=== PATIENT | female | born 1975 | race African-American/Black ===

== ENCOUNTER 2018-02-13 03:28 | Inpatient (IN) | payer MEDICAID ==
[~2018-02-13] VITALS: Ht 157.5 cm; Wt 61.2 kg
[~2018-02-13 03:28] MED LIST: ASPI-1159 PO; FURO-152 PO; LISI2.5T47 PO; SPIR25TA PO
[2018-02-13] MEDS ORDERED: FUROSEMIDE 40MG/4ML VIAL IV ONE (04:00)
[2018-02-13 04:12] LABS: BASOPHILS % 1.4 % (0.0-2.0); EOSINOPHILS % 1.4 % (0.0-5.0); HEMATOCRIT. 31.3 % (36.0-48.0); HEMOGLOBIN. 10.2 g/dL (12.0-16.0); LYMPHOCYTES % 36.5 % (20.0-50.0); MEAN CORPUSCULAR HEMOGLOBIN 32.3 pg (28.0-32.0); MEAN CORPUSCULAR VOLUME 98.9 fL (81.0-99.0); MEAN PLATELET VOLUME 7.9 fl (7.4-10.4); MONOCYTES % 8.5 % (2.0-8.0); NEUTROPHILS % 52.2 % (40.0-76.0); PLATELET 169 x1000/uL (130-400); RED BLOOD CELL COUNT 3.17 mill/uL (4.2-5.4); RED CELL DISTRIBUTION WIDTH 26.5 % (11.6-14.6)
[2018-02-13 04:16] LABS: CHLORIDE 98 mEq/L (98-107)
[2018-02-13 04:22] LABS: HCG SCREEN NEGATIVE
[2018-02-13 10:10] VITALS: BP 92/68
[2018-02-13] MEDS ORDERED: FERR325T6 MT (10:26)
[2018-02-13] MEDS ORDERED: CARV3.1242 MT (10:26)
[2018-02-13] MEDS: ASPIRIN 81MG TABLET PO SCH (12:02)
[2018-02-13] MEDS: LOSARTAN POTASSIUM 25 MG TABLET PO SCH (13:30)
[2018-02-13] MEDS: SPIRONOLACTONE 25MG TABLET PO SCH ×2 (13:30→20:36)
[2018-02-13 13:52] LABS: PHOSPHORUS 4.4 mg/dL (2.5-4.9)
[2018-02-13 13:54] LABS: FERRITIN 59 ng/mL (10-291)
[2018-02-13 14:02] LABS: TOTAL IRON BINDING CAPACITY 430 ug/dL (250-450)
[2018-02-13 14:05] LABS: HEPATITIS B SURFACE ANTIGEN NEGATIVE
[2018-02-13 14:08] LABS: VITAMIN B12 SERUM 955 pg/mL (211-911)
[2018-02-13 14:35] LABS: HEPATITIS A AB IGM NEGATIVE (NEGATIVE)
[2018-02-13] MEDS: POTASSIUM CHLORIDE 20MEQ TABLET SR PO SCH ×2 (14:53→17:00)
[2018-02-13] MEDS: FUROSEMIDE 100MG/10ML VIAL IVP SCH ×2 (14:53→17:15)
[2018-02-13] MEDS ORDERED: ENOXAPARIN 30MG/0.3ML SYR SUBCUT SCH (17:00)
[2018-02-13 18:24] LABS: CLARITY URINE CLOUDY (CLEAR); COLOR URINE DARK YELLOW (YELLOW); KETONES URINE NEGATIVE (NEGATIVE); LEUKOCYTE ESTERASE URINE 3+ (NEGATIVE); NITRITE URINE NEGATIVE (NEGATIVE); OCCULT BLOOD URINE 3+ (NEGATIVE); PROTEIN URINE TRACE (NEGATIVE); SPECIFIC GRAVITY URINE 1.016 (1.005-1.030)
[2018-02-13 18:33] LABS: *AMPHETAMINES SCREEN URINE NEGATIVE (NEGATIVE); *BARBITURATES SCREEN URINE NEGATIVE (NEGATIVE); *BENZODIAZEPINES SCREEN URINE NEGATIVE (NEGATIVE); *COCAINE SCREEN URINE NEGATIVE (NEGATIVE); METHADONE URINE SCREEN NEGATIVE (NEGATIVE); OPIATES URINE SCREEN NEGATIVE (NEGATIVE); PHENCYCLIDINE URINE SCREEN NEGATIVE (NEGATIVE)
[2018-02-13 18:50] LABS: CANNABINOID URINE SCREEN PRESUMTIVE POSITIVE (NEGATIVE)
[2018-02-13 20:00] VITALS: BP 96/69
[2018-02-14] VITALS: BP 94/67
[2018-02-14] MEDS: FUROSEMIDE 100MG/10ML VIAL IVP SCH (06:30)
[2018-02-14 07:15] LABS: BASOPHILS % 0.5 % (0.0-2.0); EOSINOPHILS % 1.8 % (0.0-5.0); HEMATOCRIT. 28.3 % (36.0-48.0); HEMOGLOBIN. 9.4 g/dL (12.0-16.0); LYMPHOCYTES % 43.4 % (20.0-50.0); MEAN CORPUSCULAR HEMOGLOBIN 31.4 pg (28.0-32.0); MEAN CORPUSCULAR VOLUME 94.9 fL (81.0-99.0); MEAN PLATELET VOLUME 7.5 fl (7.4-10.4); MONOCYTES % 8.6 % (2.0-8.0); NEUTROPHILS % 45.7 % (40.0-76.0); PLATELET 139 x1000/uL (130-400); RED BLOOD CELL COUNT 2.99 mill/uL (4.2-5.4); RED CELL DISTRIBUTION WIDTH 26.8 % (11.6-14.6)
[2018-02-14 07:53] LABS: CHLORIDE 98 mEq/L (98-107)
[2018-02-14 08:00] VITALS: BP 97/72
[2018-02-14 08:05] LABS: LDL CHOLESTEROL 48 mg/dL (5-100)
[2018-02-14 08:06] LABS: CREATINE KINASE 41 IU/L (26-192); CREATINE KINASE MB FRACTION 1.4 ng/mL (0.5-3.6); HDL CHOLESTEROL 33 mg/dL (40-59)
[2018-02-14] MEDS: POTASSIUM CHLORIDE 20MEQ TABLET SR PO SCH (08:23)
[2018-02-14] MEDS: SPIRONOLACTONE 25MG TABLET PO SCH (08:23)
[2018-02-14] MEDS: ASPIRIN 81MG TABLET PO SCH (08:23)
[2018-02-14] MEDS: LOSARTAN POTASSIUM 25 MG TABLET PO SCH (08:24)
[2018-02-14 11:11] VITALS: BP 97/72
[2018-02-14 12:00] VITALS: BP 97/65
[2018-02-14] MEDS ORDERED: CARV3.1242 MT (14:01)
[2018-02-14] MEDS ORDERED: FURO10VI3 IVP (14:01)
[2018-02-14] MEDS ORDERED: LOSA25TA3 PO (14:01)
[2018-02-14] MEDS ORDERED: POTASSIUM CHLORIDE 20MEQ TABLET SR PO NR (15:15)
[2018-02-14] MEDS ORDERED: FUROSEMIDE 100MG/10ML VIAL IVP SCH (17:00)
== END 2018-02-14 15:50 | disposition left against medical advice (07) | DRG 194 ==
LOC: ER 03:28 → 5WST 05:01 → EDBEDREQ 05:06 → EDBEDREQTM 05:06 → CANRESERV 07:16 → ENRESERV 07:16 → 5WST 08:51
PROVIDERS: ADMIT Internal Medicine; ATTEND Internal Medicine
DX: I11.0 Hypertensive heart disease with heart failure (principal); I27.20 Pulmonary hypertension, unspecified; I95.9 Hypotension, unspecified; I42.0 Dilated cardiomyopathy; R18.8 Other ascites; J45.909 Unspecified asthma, uncomplicated; Z53.21 Procedure and treatment not carried out due to patient leaving prior to being seen by health care provider; I50.43 Acute on chronic combined systolic (congestive) and diastolic (congestive) heart failure; D64.9 Anemia, unspecified; F12.90 Cannabis use, unspecified, uncomplicated; F17.210 Nicotine dependence, cigarettes, uncomplicated; I34.0 Nonrheumatic mitral (valve) insufficiency; Z79.82 Long term (current) use of aspirin; Z79.899 Other long term (current) drug therapy
CPT/HCPCS: 36415; 71045; 76705; 80061; 80305; 82550; 82553; 82607; 82728; 82746; 83540; 83550; 83735; 83880; 84100; 84443; 84484; 84703; 86705; 86709; 86803; 87340; 93005; 93970; 96374; 97162; 99285; J1650; J1940

== ENCOUNTER 2018-03-09 20:05 | Inpatient (IN) | payer MEDICAID ==
[~2018-03-09] VITALS: Ht 156.5 cm; Wt 75.7 kg
[~2018-03-09 20:05] MED LIST changes: +CARV3.1242 MT; +FERR325T6 MT; +FURO10VI3 IVP; +LOSA25TA3 PO
[2018-03-09] MEDS ORDERED: FUROSEMIDE 100MG/10ML VIAL IVP ONE (23:15)
[2018-03-09 23:46] LABS: BASOPHILS % 1.5 % (0.0-2.0); EOSINOPHILS % 1.7 % (0.0-5.0); HEMATOCRIT. 34.1 % (36.0-48.0); HEMOGLOBIN. 11.2 g/dL (12.0-16.0); LYMPHOCYTES % 36.2 % (20.0-50.0); MEAN CORPUSCULAR HEMOGLOBIN 32.1 pg (28.0-32.0); MEAN CORPUSCULAR VOLUME 97.4 fL (81.0-99.0); MEAN PLATELET VOLUME 7.6 fl (7.4-10.4); MONOCYTES % 7.2 % (2.0-8.0); NEUTROPHILS % 53.4 % (40.0-76.0); PLATELET 194 x1000/uL (130-400)
[2018-03-10] VITALS (8 sets, daily range): BP systolic 88–128; BP diastolic 61–75
[2018-03-10 00:02] LABS: CHLORIDE 101 mEq/L (98-107)
[2018-03-10 00:27] LABS: PLATELET ESTIMATE NORMAL
[2018-03-10] MEDS ORDERED: ONDANSETRON HCL 4MG/2ML INJ IV PRN (08:30)
[2018-03-10] MEDS ORDERED: ACETAMINOPHEN 325MG TABLET PO PRN (08:30)
[2018-03-10] MEDS ORDERED: CARVEDILOL 3.125 MG TABLET PO SCH (09:00)
[2018-03-10] MEDS: FUROSEMIDE 100MG/10ML VIAL IVP SCH ×2 (09:10→16:34)
[2018-03-10] MEDS: POTASSIUM CHLORIDE 20MEQ TABLET SR PO SCH (09:11)
[2018-03-10] MEDS: ENOXAPARIN 40MG/0.4ML SYR SUBCUT SCH (09:12)
[2018-03-10] MEDS: HYDROCODONE/ACETAMINOPHEN 5/325MG TABLET PO PRN ×2 (14:32→22:59)
[2018-03-10] MEDS: CARVEDILOL 6.25 MG TABLET PO SCH (20:38)
[2018-03-11] VITALS (12 sets, daily range): BP systolic 92–155; BP diastolic 45–85
[2018-03-11 00:02] LABS: CLARITY URINE CLEAR (CLEAR); COLOR URINE DARK YELLOW (YELLOW); KETONES URINE NEGATIVE (NEGATIVE); LEUKOCYTE ESTERASE URINE 2+ (NEGATIVE); NITRITE URINE NEGATIVE (NEGATIVE); OCCULT BLOOD URINE TRACE (NEGATIVE); PH URINE 5.5 (4.5-8.0); PROTEIN URINE NEGATIVE (NEGATIVE); SPECIFIC GRAVITY URINE 1.012 (1.005-1.030)
[2018-03-11 00:19] LABS: *AMPHETAMINES SCREEN URINE NEGATIVE (NEGATIVE); *BARBITURATES SCREEN URINE NEGATIVE (NEGATIVE); *BENZODIAZEPINES SCREEN URINE NEGATIVE (NEGATIVE); *COCAINE SCREEN URINE NEGATIVE (NEGATIVE)
[2018-03-11 00:20] LABS: METHADONE URINE SCREEN NEGATIVE (NEGATIVE); PHENCYCLIDINE URINE SCREEN NEGATIVE (NEGATIVE)
[2018-03-11 00:24] LABS: CANNABINOID URINE SCREEN PRESUMTIVE POSITIVE (NEGATIVE); OPIATES URINE SCREEN PRESUMTIVE POSITIVE (NEGATIVE)
[2018-03-11 06:29] LABS: BASOPHILS % 1.6 % (0.0-2.0); EOSINOPHILS % 2.3 % (0.0-5.0); HEMATOCRIT. 29.6 % (36.0-48.0); HEMOGLOBIN. 9.9 g/dL (12.0-16.0); LYMPHOCYTES % 46.6 % (20.0-50.0); MEAN CORPUSCULAR HEMOGLOBIN 31.9 pg (28.0-32.0); MEAN PLATELET VOLUME 7.4 fl (7.4-10.4); MONOCYTES % 7.9 % (2.0-8.0); NEUTROPHILS % 41.6 % (40.0-76.0); PLATELET 171 x1000/uL (130-400); RED BLOOD CELL COUNT 3.11 mill/uL (4.2-5.4); RED CELL DISTRIBUTION WIDTH 24.3 % (11.6-14.6)
[2018-03-11 06:33] LABS: CHLORIDE 102 mEq/L (98-107)
[2018-03-11] MEDS ORDERED: POTASSIUM CHLORIDE 20MEQ TABLET SR PO SCH (08:30)
[2018-03-11] MEDS: CARVEDILOL 6.25 MG TABLET PO SCH ×2 (09:00→20:57)
[2018-03-11] MEDS: POTASSIUM CHLORIDE 20MEQ TABLET SR PO SCH (09:53)
[2018-03-11] MEDS: ENOXAPARIN 40MG/0.4ML SYR SUBCUT SCH (09:54)
[2018-03-11] MEDS: FUROSEMIDE 100MG/10ML VIAL IVP SCH ×2 (09:54→17:23)
[2018-03-11] MEDS ORDERED: CEFTRIAXONE 1,000 MG in DEXTROSE 5% WATER 50 ML IV SCH (11:45)
[2018-03-11] MEDS: CEFTRIAXONE 1 G PREMIX 50 ML IV SCH (13:50)
[2018-03-11] MEDS: HYDROCODONE/ACETAMINOPHEN 5/325MG TABLET PO PRN (20:52)
[2018-03-12] VITALS (10 sets, daily range): BP systolic 86–133; BP diastolic 49–78
[2018-03-12 07:15] LABS: BASOPHILS % 1.4 % (0.0-2.0); EOSINOPHILS % 1.7 % (0.0-5.0); HEMATOCRIT. 30.7 % (36.0-48.0); LYMPHOCYTES % 41.9 % (20.0-50.0); MEAN CORPUSCULAR HEMOGLOBIN 31.4 pg (28.0-32.0); MEAN PLATELET VOLUME 7.7 fl (7.4-10.4); PLATELET 175 x1000/uL (130-400); RED BLOOD CELL COUNT 3.19 mill/uL (4.2-5.4); RED CELL DISTRIBUTION WIDTH 23.9 % (11.6-14.6)
[2018-03-12 08:14] LABS: CHLORIDE 100 mEq/L (98-107)
[2018-03-12] MEDS: ENOXAPARIN 40MG/0.4ML SYR SUBCUT SCH (09:28)
[2018-03-12] MEDS: POTASSIUM CHLORIDE 20MEQ TABLET SR PO SCH (09:29)
[2018-03-12] MEDS: CARVEDILOL 6.25 MG TABLET PO SCH ×2 (09:30→22:57)
[2018-03-12] MEDS: FUROSEMIDE 100MG/10ML VIAL IVP SCH (09:31)
[2018-03-12] MEDS: HYDROCODONE/ACETAMINOPHEN 5/325MG TABLET PO PRN (10:03)
[2018-03-12] MEDS ORDERED: ZOLPIDEM TARTRATE 5MG TABLET PO PRN (10:30)
[2018-03-12] MEDS ORDERED: FUROSEMIDE 40MG/4ML VIAL IVP NR (11:11)
[2018-03-12] MEDS: LOSARTAN POTASSIUM 25 MG TABLET PO SCH (12:30)
[2018-03-12] MEDS: SPIRONOLACTONE 25MG TABLET PO SCH (12:34)
[2018-03-12] MEDS: CEFTRIAXONE 1 G PREMIX 50 ML IV SCH (14:16)
[2018-03-12] MEDS ORDERED: FUROSEMIDE 40MG/4ML VIAL IVP SCH (17:15)
[2018-03-13] VITALS (10 sets, daily range): BP systolic 85–97; BP diastolic 23–66
[2018-03-13] MEDS: HYDROCODONE/ACETAMINOPHEN 5/325MG TABLET PO PRN ×3 (00:03→23:38)
[2018-03-13 08:00] LABS: BASOPHILS % 0.4 % (0.0-2.0); EOSINOPHILS % 2.2 % (0.0-5.0); HEMATOCRIT. 30.4 % (36.0-48.0); MEAN CORPUSCULAR HEMOGLOBIN 32.1 pg (28.0-32.0); MEAN CORPUSCULAR VOLUME 97.5 fL (81.0-99.0); MEAN PLATELET VOLUME 7.8 fl (7.4-10.4); MONOCYTES % 9.5 % (2.0-8.0); NEUTROPHILS % 47.9 % (40.0-76.0); PLATELET 184 x1000/uL (130-400); RED BLOOD CELL COUNT 3.12 mill/uL (4.2-5.4); RED CELL DISTRIBUTION WIDTH 23.4 % (11.6-14.6)
[2018-03-13 08:13] LABS: CHLORIDE 99 mEq/L (98-107)
[2018-03-13] MEDS: ENOXAPARIN 40MG/0.4ML SYR SUBCUT SCH (09:46)
[2018-03-13] MEDS: LOSARTAN POTASSIUM 25 MG TABLET PO SCH (09:48)
[2018-03-13] MEDS: CARVEDILOL 6.25 MG TABLET PO SCH ×2 (09:48→20:52)
[2018-03-13] MEDS: POTASSIUM CHLORIDE 20MEQ TABLET SR PO SCH (09:48)
[2018-03-13] MEDS: SPIRONOLACTONE 25MG TABLET PO SCH (09:49)
[2018-03-13] MEDS: METOLAZONE 10MG TABLET PO SCH (12:41)
[2018-03-13] MEDS: CEFTRIAXONE 1 G PREMIX 50 ML IV SCH (15:11)
[2018-03-13 15:27] LABS: INR 1.5; PROTHROMBIN TIME 14.8 sec (9.1-11.1)
[2018-03-14] VITALS (7 sets, daily range): BP systolic 47–101; BP diastolic 22–67
[2018-03-14] MEDS: HYDROCODONE/ACETAMINOPHEN 5/325MG TABLET PO PRN (04:24)
[2018-03-14 06:03] LABS: BASOPHILS % 1.3 % (0.0-2.0); EOSINOPHILS % 2.8 % (0.0-5.0); HEMOGLOBIN. 10.2 g/dL (12.0-16.0); LYMPHOCYTES % 40.7 % (20.0-50.0); MEAN CORPUSCULAR HEMOGLOBIN 31.8 pg (28.0-32.0); MEAN CORPUSCULAR VOLUME 96.4 fL (81.0-99.0); MEAN PLATELET VOLUME 7.8 fl (7.4-10.4); MONOCYTES % 9.2 % (2.0-8.0); PLATELET 204 x1000/uL (130-400); RED BLOOD CELL COUNT 3.21 mill/uL (4.2-5.4); RED CELL DISTRIBUTION WIDTH 23.3 % (11.6-14.6)
[2018-03-14 06:25] LABS: CHLORIDE 99 mEq/L (98-107)
[2018-03-14] MEDS: CARVEDILOL 6.25 MG TABLET PO SCH (07:58)
[2018-03-14] MEDS: LOSARTAN POTASSIUM 25 MG TABLET PO SCH (07:59)
[2018-03-14] MEDS: METOLAZONE 10MG TABLET PO SCH (07:59)
[2018-03-14] MEDS: SPIRONOLACTONE 25MG TABLET PO SCH (07:59)
[2018-03-14] MEDS: POTASSIUM CHLORIDE 20MEQ TABLET SR PO SCH (08:00)
[2018-03-14] MEDS ORDERED: LIDOCAINE HCL 1% 20ML VIAL (Pyxis) INJ ONE (11:29)
[2018-03-14] MEDS ORDERED: SODIUM BICARBONATE 4% (2.4MEQ) 5ML VIAL IV ONE (11:30)
[2018-03-14] MEDS: CEFTRIAXONE 1 G PREMIX 50 ML IV SCH (12:56)
[2018-03-14] MEDS ORDERED: FUROSEMIDE 100MG/10ML VIAL IVP SCH (13:15)
== END 2018-03-14 16:10 | disposition home or self-care (01) | DRG 194 ==
LOC: ER 20:05 → 5EST 03-10 00:41 → EDBEDREQDT 03-10 00:44 → EDBEDREQ 03-10 00:44 → EDBEDREQTM 03-10 00:44 → ENRESERV 03-10 03:27
PROVIDERS: ADMIT Internal Medicine; ATTEND Internal Medicine
PROC: 0W9G3ZZ Drainage of Peritoneal Cavity, Percutaneous Approach (ICD-10-PCS; principal; 2018-03-14)
DX: I11.0 Hypertensive heart disease with heart failure (principal); I27.20 Pulmonary hypertension, unspecified; I95.9 Hypotension, unspecified; I42.0 Dilated cardiomyopathy; R18.8 Other ascites; E87.6 Hypokalemia; D64.9 Anemia, unspecified; R74.8 Abnormal levels of other serum enzymes; E78.5 Hyperlipidemia, unspecified; F12.90 Cannabis use, unspecified, uncomplicated; I50.23 Acute on chronic systolic (congestive) heart failure; Z95.810 Presence of automatic (implantable) cardiac defibrillator; Z87.891 Personal history of nicotine dependence; Z79.82 Long term (current) use of aspirin; Z79.899 Other long term (current) drug therapy
CPT/HCPCS: 36415; 49083; 71045; 76705; 80048; 80305; 83880; 84484; 93005; 93970; 96372; 96374; 99285; J0696; J1650; J1940; J2405; J3490; J7050

== ENCOUNTER 2018-04-27 23:19 | Inpatient (IN) | payer MEDICAID, OTHER ==
[~2018-04-27] VITALS: Ht 157.5 cm; Wt 57.4 kg
[~2018-04-27 23:19] MED LIST changes: -FURO10VI3 IVP; -LISI2.5T47 PO; -SPIR25TA PO
[2018-04-28] MEDS ORDERED: FUROSEMIDE 40MG/4ML VIAL IV ONE (04:45)
[2018-04-28 05:22] LABS: BASOPHILS % 1.1 % (0.0-2.0); HEMATOCRIT. 31.2 % (36.0-48.0); HEMOGLOBIN. 10.5 g/dL (12.0-16.0); LYMPHOCYTES % 44.6 % (20.0-50.0); MEAN CORPUSCULAR HEMOGLOBIN 32.6 pg (28.0-32.0); MEAN CORPUSCULAR VOLUME 96.7 fL (81.0-99.0); MEAN PLATELET VOLUME 6.8 fl (7.4-10.4); MONOCYTES % 6.2 % (2.0-8.0); NEUTROPHILS % 46.1 % (40.0-76.0); PLATELET 179 x1000/uL (130-400); RED BLOOD CELL COUNT 3.22 mill/uL (4.2-5.4); RED CELL DISTRIBUTION WIDTH 20.4 % (11.6-14.6)
[2018-04-28 05:37] LABS: CHLORIDE 103 mEq/L (98-107)
[2018-04-28] MEDS ORDERED: ONDANSETRON HCL 4MG/2ML INJ IV PRN (09:30)
[2018-04-28] MEDS ORDERED: IPRATROPIUM/ALBUTEROL 0.5-3(2.5)MG/3ML NEB INH PRN (09:30)
[2018-04-28] MEDS ORDERED: GUAIFENESIN 200MG/10ML SUGAR FREE UDC PO PRN (09:30)
[2018-04-28] MEDS ORDERED: MAGNESIUM/ALUMINUM HYDROXIDE/SIMETHICONE 30ML UDC PO PRN (09:30)
[2018-04-28] MEDS ORDERED: ENOXAPARIN 40MG/0.4ML SYR SUBCUT SCH (09:30)
[2018-04-28] MEDS ORDERED: CLONIDINE 0.1MG TABLET PO PRN (09:30)
[2018-04-28] MEDS ORDERED: DOCUSATE SODIUM 100MG CAPSULE PO PRN (09:30)
[2018-04-28] MEDS ORDERED: DIPHENHYDRAMINE 50MG/ML VIAL IV PRN (09:30)
[2018-04-28] MEDS ORDERED: ACETAMINOPHEN 325MG TABLET PO PRN (09:30)
[2018-04-28] MEDS ORDERED: POTASSIUM CHLORIDE 20MEQ TABLET SR PO NR (09:30)
[2018-04-28] MEDS ORDERED: HYDROCODONE/ACETAMINOPHEN 5/325MG TABLET PO PRN (09:30)
[2018-04-28 10:15] LABS: PHOSPHORUS 4.1 mg/dL (2.5-4.9)
[2018-04-28] MEDS ORDERED: FURO-151 PO (11:28)
[2018-04-28 11:30] VITALS: BP 108/71
[2018-04-28 12:00] VITALS: BP 108/71
[2018-04-28] MEDS: ENOXAPARIN 40MG/0.4ML SYR SUBCUT SCH (12:12)
[2018-04-28] MEDS ORDERED: PNEUMOCOCCAL VACCINE IM ONE (15:00)
[2018-04-28 16:00] VITALS: BP 102/77
[2018-04-28 17:35] LABS: CREATINE KINASE 44 IU/L (26-192)
[2018-04-28 20:07] VITALS: BP 111/54
[2018-04-28 23:37] LABS: CREATINE KINASE 48 IU/L (26-192)
[2018-04-29 00:42] VITALS: BP 116/57
[2018-04-29 04:00] VITALS: BP 109/80
[2018-04-29 06:53] LABS: BASOPHILS % 1.8 % (0.0-2.0); EOSINOPHILS % 1.9 % (0.0-5.0); HEMATOCRIT. 29.3 % (36.0-48.0); HEMOGLOBIN. 9.9 g/dL (12.0-16.0); LYMPHOCYTES % 46.4 % (20.0-50.0); MEAN CORPUSCULAR HEMOGLOBIN 33.1 pg (28.0-32.0); MEAN CORPUSCULAR VOLUME 97.9 fL (81.0-99.0); MEAN PLATELET VOLUME 7.1 fl (7.4-10.4); MONOCYTES % 7.2 % (2.0-8.0); NEUTROPHILS % 42.7 % (40.0-76.0); PLATELET 159 x1000/uL (130-400); RED BLOOD CELL COUNT 2.99 mill/uL (4.2-5.4); RED CELL DISTRIBUTION WIDTH 20.9 % (11.6-14.6)
[2018-04-29 07:12] LABS: CHLORIDE 99 mEq/L (98-107)
[2018-04-29 07:21] LABS: LDL CHOLESTEROL 58 mg/dL (5-100)
[2018-04-29 07:22] LABS: HDL CHOLESTEROL 46 mg/dL (40-59)
[2018-04-29 08:00] VITALS: BP 103/73
[2018-04-29] MEDS ORDERED: FUROSEMIDE 40MG/4ML VIAL IVP SCH ×2 (09:00→17:15)
[2018-04-29] MEDS: ENOXAPARIN 40MG/0.4ML SYR SUBCUT SCH (09:09)
[2018-04-29 12:00] VITALS: BP 98/65
[2018-04-29] MEDS ORDERED: POTASSIUM CHLORIDE 20MEQ TABLET SR PO NR (13:15)
[2018-04-29] MEDS ORDERED: POTA10CA42 MT (13:16)
[2018-04-29] MEDS ORDERED: LOSARTAN POTASSIUM 25 MG TABLET PO SCH (13:30)
[2018-04-29 14:39] VITALS: BP 98/65
[2018-04-29] MEDS ORDERED: CARVEDILOL 3.125 MG TABLET PO SCH (21:00)
== END 2018-04-29 15:00 | disposition home or self-care (01) | DRG 194 ==
LOC: ER 23:19 → 5WST 04-28 04:55 → EDBEDREQTM 04-28 05:01 → EDBEDREQ 04-28 05:01 → ENRESERV 04-28 08:27
PROVIDERS: ADMIT Internal Medicine; ATTEND Internal Medicine
DX: I11.0 Hypertensive heart disease with heart failure (principal); D70.9 Neutropenia, unspecified; I27.20 Pulmonary hypertension, unspecified; I42.0 Dilated cardiomyopathy; D64.9 Anemia, unspecified; I50.23 Acute on chronic systolic (congestive) heart failure; F17.210 Nicotine dependence, cigarettes, uncomplicated; E87.6 Hypokalemia; I08.0 Rheumatic disorders of both mitral and aortic valves; Z82.49 Family history of ischemic heart disease and other diseases of the circulatory system; Z79.82 Long term (current) use of aspirin; Z79.899 Other long term (current) drug therapy
CPT/HCPCS: 36415; 71045; 80061; 82550; 83036; 83735; 83880; 84100; 84443; 90732; 93005; 93306; 93970; 96374; 96375; 99285; J1650; J1940